=== PATIENT | female | born 1985 | race Caucasian/White ===

== ENCOUNTER 2018-07-17 14:24 | Inpatient (IN) | payer BC ==
[~2018-07-17] VITALS: Ht 162.7 cm; Wt 91.4 kg
[2018-07-22] VITALS (36 sets, daily range): BP systolic 115–147; BP diastolic 56–92; PULSE 79–125; TEMP 97.9
--- NOTE | 2018-07-22 11:00 | NUR ---
Assumed care of patient. Pitocin 2 beny units started as ordered and per policy. Concent forms signed by patient.
[2018-07-22 11:04] LABS: COLLECTION METHOD CLEAN CATCH
[2018-07-22 11:06] LABS: HEMOGLOBIN 11.6 g/dl (12.5-16.0); MEAN CELL VOLUME 87 fl (80.0-100.0); MEAN CORPUSCULAR HEMOGLOBIN 30 pg (27.0-31.0); MEAN CORPUSCULAR HGB CONC 35 g/dl (33.0-37.0); MEAN PLATELET VOLUME 8.8 fl (7.4-10.4); PLATELET COUNT 273 K/mm3 (130-400); RED BLOOD COUNT 3.84 M/mm3 (4.10-5.30)
[2018-07-22 11:08] LABS: HEMATOCRIT 33.5 % (37.0-47.0)
[2018-07-22 11:10] LABS: MUCOUS Present /lpf; PH 7 (5-8); SQUAMOUS EPITHELIAL None Seen /hpf; URINE APPEARANCE Clear; URINE BACTERIA Rare /hpf; URINE BILIRUBIN Negative (NEGATIVE); URINE BLOOD Negative (NEGATIVE); URINE COLOR Yellow; URINE GLUCOSE Negative (NEGATIVE); URINE KETONE 1+ (NEGATIVE); URINE LEUKOCYTE ESTERASE Negative (NEGATIVE); URINE NITRATE Negative (NEGATIVE); URINE PROTEIN(semi-quant) Negative (NEGATIVE); URINE RBC 0-2 /hpf; URINE UROBILINOGEN Negative (NEGATIVE); URINE WBC 0-2 /hpf
[2018-07-22] MEDS ORDERED: PRENATAL MVI (11:13)
[2018-07-22] MEDS ORDERED: CALCIUM CARBON650 M2 (11:15)
[2018-07-22] MEDS ORDERED: ASPIRIN 81M81 MG/TA2 PO (11:15)
[2018-07-22 11:27] LABS: ALBUMIN 3.6 gm/dL (3.5-5.0); BILIRUBIN,TOTAL 0.5 mg/dL (0.0-1.0); CALCIUM 9.1 mg/dL (8.4-10.2); CREATININE, serum 0.64 mg/dL (0.52-1.25); TOTAL PROTEIN 6.7 gm/dL (6.4-8.2)
[2018-07-22] MEDS ORDERED: DIABETA 2.5MG2.5 MG PO (11:44)
[2018-07-22 11:45] LABS: POTASSIUM 2.8 mmol/L (3.4-5.0)
--- NOTE | 2018-07-22 11:45 | NUR ---
Ambulates to the bathroom and back to bed. States starting to feel contractions more. Denies any pain medication at this time.
[2018-07-22 12:14] LABS: BAND 1 % (0-10); EOSINOPHIL 1 % (0-4); LYMPHOCYTE 19 % (20.0-51.0); NEUTROPHILS 72 % (42.0-75.2); PLATELET ESTIMATE NORMAL (NORMAL)
--- NOTE | 2018-07-22 13:00 | NUR ---
1313 Dr. Knapp here, visits with patient. [address] Knapp, large amount of clear fluid noted. Pad changed.
--- NOTE | 2018-07-22 13:30 | NUR ---
Dr. Knapp called about variables. See physicians notification please.
--- NOTE | 2018-07-22 14:00 | NUR ---
Ambulates to the bathroom and back. Sits up for epidural.
--- NOTE | 2018-07-22 14:15 | NUR ---
Anesthesia here, visits with patient. 1422 Space obtained and straight shot given by anesthesia Bar Cantu c.r.n.a. Lies down after.
--- NOTE | 2018-07-22 14:45 | NUR ---
Dr. Knapp here, views monitor strip. New orders to go up on the pitocin.
--- NOTE | 2018-07-22 15:30 | NUR ---
Monitor strip shown to Dr. Knapp. Orders to keep pitocin off for awhile.
--- NOTE | 2018-07-22 15:34 | NUR ---
1506 heart tones down in the 110, then down in the sixtys to nintys for four minutes. Came back up to the 120s. Pitocin off, 028L on, repositioned. Dr. Knapp called with this information above. New orders given to keep pitocin off for awhile and reasess.
--- NOTE | 2018-07-22 16:30 | NUR ---
163 Dr. Knapp here, vag exam done. States cord on babys head. section called. Dr. Knapp continues to have hand in cervix. Other o.r. called from [facility] to do section over there. 1644 To o.r. via bed with this nurse, Norma Arriola and anesthesia Bar.
--- NOTE | 2018-07-22 17:45 | NUR ---
To pacu from o.r. per this nurse and Bar Cantu c.r.n.a. Monitors on, report given by anesthesia.
--- NOTE | 2018-07-22 17:50 | NUR ---
Rests in bed, alert. Denies any needs at this time.
--- NOTE | 2018-07-22 18:05 | NUR ---
Rests in bed, alert. baby. Spouse at bedside.
--- NOTE | 2018-07-22 23:10 | NUR ---
RN assisted pt out of bed and to restroom. Hahn d/c'ed. Pt declined feeling dizzy with ambulation. Pericare provided. Clean pad and underwear provided. Binder reapplied. Pt to chair. Pt declines futher needs at this time.
[2018-07-23 04:47] VITALS: BP 117/70; PULSE 84; TEMP 98.1
[2018-07-23 07:10] LABS: BASO # 0.1 (0.0-0.2); BASO % 0.4 % (0.0-2.0); EOS # 0.2 (0.0-0.7); EOS % 1.1 % (0-4.0); GRAN # 11.2 (1.4-6.5); GRAN % 79.3 % (42.2-75.2); HEMOGLOBIN 10.5 g/dl (12.5-16.0); LYMPH # 1.5 (1.2-3.4); LYMPH % 10.6 % (20.0-51.0); MEAN CELL VOLUME 89 fl (80.0-100.0); MEAN CORPUSCULAR HEMOGLOBIN 31 pg (27.0-31.0); MEAN CORPUSCULAR HGB CONC 35 g/dl (33.0-37.0); MEAN PLATELET VOLUME 8.9 fl (7.4-10.4); MONO # 1.1 (0.1-0.6); MONO % 7.8 % (1.7-9.3); PLATELET COUNT 244 K/mm3 (130-400); RED BLOOD COUNT 3.38 M/mm3 (4.10-5.30); REDCELL DISTRIBUTION WIDTH-CV 14.1 % (11.5-14.5)
[2018-07-23 08:00] VITALS: BP 126/78; PULSE 92; TEMP 97.8
--- NOTE | 2018-07-23 08:44 | NUR ---
Initial visit; Parents thanked General Counsel for offering congratulations and God's blessings for the of their son. General Counsel thanked them for choosing [facility].
[2018-07-23 16:00] VITALS: BP 144/78; PULSE 96; TEMP 97.6
[2018-07-23 21:30] VITALS: BP 122/80; PULSE 91; TEMP 98.1
[2018-07-24 09:23] VITALS: BP 117/78; PULSE 93; TEMP 97.7
[2018-07-24] MEDS ORDERED: IBU600 MG PO (10:03)
[2018-07-24] MEDS ORDERED: PERCOCET 325 MG1 TA2 PO (10:03)
== END 2018-07-24 13:07 | disposition home or self-care (01) | DRG 788 ==
LOC: LDR 07-22 10:25 → OB 07-22 19:13 → LDR 07-28 14:22
PROVIDERS: ADMIT Obstetrics & Gynecology
PROC: 10D00Z1 Extraction of Products of Conception, Low, Open Approach (ICD-10-PCS; principal; 2018-07-22)
PROC: 3E033VJ Introduction of Other Hormone into Peripheral Vein, Percutaneous Approach (ICD-10-PCS; 2018-07-22)
DX: O13.4 Gestational [pregnancy-induced] hypertension without significant proteinuria, complicating childbirth (principal); Z3A.37 37 weeks gestation of pregnancy; Z37.0 Single live birth; O24.425 Gestational diabetes mellitus in childbirth, controlled by oral hypoglycemic drugs; O69.0XX0 Labor and delivery complicated by prolapse of cord, not applicable or unspecified; O76 Abnormality in fetal heart rate and rhythm complicating labor and delivery
CPT/HCPCS: J0690; J1885; J2370; J2405; J2590; J2795; J3010; J7120

== ENCOUNTER → 2020-06-07 | Outpatient (CLI) | payer BC ==
[~2020-06-07] MED LIST: ASPIRIN 81M81 MG/TA2 PO; CALCIUM CARBON650 M2; DIABETA 2.5MG2.5 MG PO; IBU600 MG PO; MOTRIN 600600 MG/TAB PO; PERCOCET 325 MG1 TA2 PO; PRENATAL MVI; UNISOM25 MG PO
== END ==
LOC: ZCOL.LAB 08:26
DX: Z20.828 Contact with and (suspected) exposure to other viral communicable diseases (principal)

== ENCOUNTER 2020-06-09 00:25 | Outpatient (CLI) | payer BC ==
[~2020-06-09] VITALS: Ht 162.6 cm; Wt 98.2 kg
[~2020-06-09 00:25] MED LIST changes: -MOTRIN 600600 MG/TAB PO; -UNISOM25 MG PO
--- NOTE | 2020-06-09 00:35 | NUR ---
PT ARRIVED TO UNIT AMBULATORY WITH SPOUSE WITH COMPLAINTS OF CONTRACTIONS AND RECTAL PRESSURE. PT ORIENTED TO ROOM, CHANGED INTO GOWN, EFMX2 APPLIED, VS OBTAINED, AND SVE PERFORMED.
[2020-06-09 00:51] VITALS: BP 154/91; PULSE 101; TEMP 98.2
[2020-06-09 01:00] VITALS: BP 163/96; PULSE 107; TEMP 98.2
[2020-06-09] MEDS ORDERED: ASPIRIN 81M81 MG/TA2 PO (01:01)
[2020-06-09] MEDS ORDERED: UNISOM25 MG PO (01:03)
[2020-06-09 01:30] VITALS: BP 134/82; PULSE 104
[2020-06-09 02:01] VITALS: BP 123/75; PULSE 103
--- NOTE | 2020-06-09 02:10 | NUR ---
0122- PT MAY DC HOME PER DR. MATSON IF CONTRACTIONS HAVE CEASED. 0201- PT CHOOSES TO DC HOME AT THIS TIME. MONITORING DC'D. DISCHARGE INSTRUCTIONS REVIEWED, PT INSTRUCTED TO CONTACT DR GUERRIER IN THE MORNING IF CONTRACTIONS WERE TO START AGAIN OR TO RETURN TO THE UNIT FOR MORE EVAULATION. PT AND SPOUSE VERBALIZED UNDERSTANDING. 0210- PT AND SPOUSE OFF THE UNIT AMBULATORY FOR HOME.
== END 2020-06-09 02:10 | disposition home or self-care (01) ==
LOC: LDRO 00:25
DX: O62.9 Abnormality of forces of labor, unspecified (principal); Z3A.38 38 weeks gestation of pregnancy; Z87.59 Personal history of other complications of pregnancy, childbirth and the puerperium

== ENCOUNTER 2020-06-12 06:46 | Inpatient (IN) | payer BC ==
[~2020-06-12] VITALS: Ht 162.6 cm; Wt 98.2 kg
[2020-06-12] VITALS (18 sets, daily range): BP systolic 94–156; BP diastolic 71–95; PULSE 4–113; TEMP 98.6–98.8
[~2020-06-12 06:46] MED LIST changes: +UNISOM25 MG PO
--- NOTE | 2020-06-12 09:10 | NUR ---
Presents to naqvi for repeat section. Assessment done, questions offered and answered.
[2020-06-12 09:51] LABS: BASO % 0.4 % (0.0-2.0); EOS # 0.1 (0.0-0.7); EOS % 0.8 % (0-4.0); GRAN # 6.9 (1.4-6.5); GRAN % 71.8 % (42.2-75.2); HEMOGLOBIN 11.7 g/dl (12.5-16.0); LYMPH # 1.8 (1.2-3.4); MEAN CELL VOLUME 90 fl (80.0-100.0); MEAN CORPUSCULAR HEMOGLOBIN 31 pg (27.0-31.0); MEAN CORPUSCULAR HGB CONC 34 g/dl (33.0-37.0); MEAN PLATELET VOLUME 9.4 fl (7.4-10.4); MONO # 0.7 (0.1-0.6); MONO % 7.3 % (1.7-9.3); PLATELET COUNT 268 K/mm3 (130-400); RED BLOOD COUNT 3.83 M/mm3 (4.10-5.30); REDCELL DISTRIBUTION WIDTH-CV 14.4 % (11.5-14.5)
[2020-06-12 09:52] LABS: HEMATOCRIT 34.4 % (37.0-47.0)
--- NOTE | 2020-06-12 10:53 | NUR ---
PT AMBULATED TO OPERATING ROOM FOR . SAT ON EDGE OF BED. SPINAL PLACED BY WIL OCASIO. REPOSITIONED LYING DOWN AFTER SPINAL WITH BLANKET WEDGE UNDER RIGHT HIP. FHT'S 146. GIBSON CATHETER PLACED. DURAPREP TO ABDOMEN. DELIVERY OF FEMALE INFANT AT [address]ERRIER AND DR SYED.
--- NOTE | 2020-06-12 12:10 | NUR ---
TO ROOM AFTER DISCHARGE FROM PACU. CAN MOVE LEGS WELL. FUNDUS FIRM WITH MINIMAL BLEEDING.
--- NOTE | 2020-06-12 13:15 | NUR ---
Rest in bed, alert. 1330 Tylenol 650 mg po given per request and as ordered.
--- NOTE | 2020-06-12 16:00 | NUR ---
Rests in bed, alert. Denies any needs at this time.
--- NOTE | 2020-06-12 17:00 | NUR ---
Rests in bed, alert. Request pain medication. 1710 Ibuprofen 600 mg given per request and as ordered.
[2020-06-13 00:30] VITALS: BP 150/83; PULSE 88; TEMP 98.1
[2020-06-13 05:40] VITALS: BP 155/85; PULSE 91
[2020-06-13 06:11] LABS: HEMOGLOBIN 11.2 g/dl (12.5-16.0)
[2020-06-13 06:32] LABS: HEMATOCRIT 31.8 % (37.0-47.0)
[2020-06-13 08:13] VITALS: BP 159/88; PULSE 88; TEMP 98.1
[2020-06-13] MEDS ORDERED: MOTRIN 600600 MG/TAB PO (09:34)
--- NOTE | 2020-06-13 13:16 | NUR ---
Initial visit; Parents thanked Data Collection Associate for offering congratulations and God's blessings for the of their daughter. Data Collection Associate thanked family for choosing [facility].
--- NOTE | 2020-06-13 13:40 | NUR ---
Reviewed discharge post c/s instructions with patient and spouse. Verbalized understanding and denies questions. Updated on newly prescribed motrin and need to pick up operator at pharmacy. Provided follow up apt information.
== END 2020-06-13 13:50 | disposition home or self-care (01) | DRG 788 ==
LOC: OB 06:46
PROVIDERS: ADMIT Obstetrics & Gynecology
PROC: 10D00Z1 Extraction of Products of Conception, Low, Open Approach (ICD-10-PCS; principal; 2020-06-12)
DX: O34.211 Maternal care for low transverse scar from previous cesarean delivery (principal); Z3A.39 39 weeks gestation of pregnancy; Z37.0 Single live birth; O24.420 Gestational diabetes mellitus in childbirth, diet controlled
CPT/HCPCS: J0690; J1885; J2405; J2590; J2765; J7120